=== PATIENT | male | born 1955 | race Caucasian/White ===

== ENCOUNTER 2021-07-12 08:29 | Outpatient (CLI) | payer MEDICARE, SELFPAY ==
--- NOTE | ~2021-07-12 | MR_ITS ---
EXAMINATION: MR cervical spine wo con DATE: 07/12/2021 09:45 INDICATION: Neck pain. TECHNIQUE: Magnetic resonance imaging (MRI) of the cervical spine was performed without intravenous c ontrast. Sequences included sagittal T2-weighted FSE, sagittal STIR FSE, sagittal T1-weighted FSE, ax ial MERGE, and axial T2-weighted FSE. COMPARISON: None FINDINGS: Bone alignment is normal. Vertebral body heights are normal. Intervertebral disc heights ar e normal. Osseous central spinal canal is developmentally small from C1 to C6. The spinal cord signal intensity is normal. The following disc levels are specifically discussed: C2-C3: The disc does not extend beyond the endplate margin. There is mild bilateral uncovertebral yvonne nt osteoarthritis. There is mild right and moderate left facet joint osteoarthritis. There is mild bi lateral neural foraminal stenosis. There is mild central canal stenosis. C3-C4: The disc does not extend beyond the endplate margin. There is mild right and moderate left unc overtebral joint osteoarthritis. There is mild right facet joint osteoarthritis. There is mild bilate ral neural foraminal stenosis. There is mild central canal stenosis. C4-C5: The disc is bulging. There is moderate bilateral uncovertebral joint osteoarthritis. There is moderate bilateral facet joint osteoarthritis. There is moderate bilateral neural foraminal stenosis. There is mild central canal stenosis with ventral indentation of the spinal cord. C5-C6: The disc is bulging. There is severe bilateral uncovertebral joint osteoarthritis. There is se mackenzie bilateral facet joint osteoarthritis. There is moderate bilateral neural foraminal stenosis. The re is moderate central canal stenosis with ventral and dorsal indentation of the spinal cord. C6-C7: The disc is mildly bulging. There is mild bilateral uncovertebral joint osteoarthritis. There is mild bilateral facet joint osteoarthritis. There is mild right neural foraminal stenosis. There is mild central canal stenosis. C7-T1: The disc does not extend beyond the endplate margin. There is no uncovertebral joint osteoarth ritis. There is mild bilateral facet joint osteoarthritis. There is no neural foraminal stenosis. The re is no central canal stenosis. IMPRESSION: 1. Moderate cervical spondylosis. Reviewed, dictated and finalized at location A. MENTATION COORDINATOR
== END 2021-07-12 08:30 | disposition home or self-care (01) ==
PROVIDERS: PCP Internal Medicine; Visit Provider Physician Assistant Medical
DX: M47.813 Spondylosis without myelopathy or radiculopathy, cervicothoracic region (principal); M48.03 Spinal stenosis, cervicothoracic region
CPT/HCPCS: 72141

== ENCOUNTER 2021-11-13 00:20 | Day surgery (SDC) | payer MEDICARE, SELFPAY ==
[2021-06-29 14:03] VITALS: BMI 38.9
[2021-09-21 09:01] VITALS: BMI 38.9
[2021-10-26 15:05] VITALS: BMI 39.5
--- NOTE | 2021-11-13 06:47 | P.PNAN_ITS ---
Anes - Initial Pre Proc Eval Procedure: Operation Date: 11/13/21 08:00 Proposed Procedures p Screening Colonoscopy - Ag Sharp MD Date/Time: 11/13/21 06:47 Surgeon: Ag Sharp MD Pre Op Diagnosis: hx of colon ca, hx of colon polyps Patient Data Age: 66 Gender: M Height: 1.78 m Weight: 125 kg Allergies Allergy/AdvReac Type Severity Reaction Status Date / Time No Known Allergies Allergy Verified 11/13/21 06:47 Home Medications Medication Instructions Recorded Confirmed Type atorvastatin 20 mg PO DAILY 06/29/21 10/26/21 History cholecalciferol (vitamin D3) 25 mcg PO BID 06/29/21 10/26/21 History lisinopril-hydrochlorothiazide 1 tablet PO DAILY 06/29/21 10/26/21 History mecobalamin (vitamin B12) 1,000 mcg PO DAILY 06/29/21 10/26/21 History metformin 500 mg PO BID 06/29/21 10/26/21 History psyllium husk [Metamucil] 0.52 g PO BID 06/29/21 10/26/21 History vit C-vit Z-trmjet-vni-om-3 1 cap PO DAILY 06/29/21 10/26/21 History [Ocuvite] Patient hx anesthesia problems: none Family hx anesthesia problems: none Results Review: All pre-operative results and documents have been reviewed as part of the pre-operative evaluation. [facility] Past Medical History Medical History (Updated 11/12/21 @ 13:32 by Chris Souza DO) Colon cancer Diabetes type 2, controlled Hyperlipidemia Hypertension MARIO ALBERTO (obstructive sleep apnea) CPAP Family History Family History (Updated 03/24/14 @ 07:13 by DOCTOR UNKNOWN) Sibling Family history of congestive heart failure Other Diabetes mellitus Social History Social History Smoking status: Never smoker Alcohol intake: current Alcohol use details: Monthly Living arrangements: with family Spiritual care concerns: No Anes - Eval Final PreProcedure Day of Procedure 11/13/21 06:47 Patient weight: obese Heart: regular rate and rhythm Lungs: clear to auscultation and normal air movement Airway: Mallampati scale class III Neurological: alert and oriented Last oral intake: >/= 8 hours ASA classification: III Emergent: no Anesthetic plan: proceed Anesthesia type and monitoring: general GIVS and standard monitoring Results Review: All pre-operative results and documents have been reviewed as part of the pre-operative evaluation. Informed Consent: The patient's anesthetic plan and its attendant risks and benefits were discussed with the patient/family/POA. Questions were solicited and answers provided to the satisfaction of the patient/family/POA.
[2021-11-13 06:48] VITALS: BP 149/81; PULSE 85; RESP 20; TEMP 36.9; O2SAT 96
[2021-11-13] MEDS: LACTATED RINGERS 1,000 ML 150 ML IV CONT (06:56)
[2021-11-13 07:04] LABS: Glucose Point of Care 247 mg/dl (65-105)
--- NOTE | 2021-11-13 07:56 | WPDGICN ---
Assessment and Plan Assessment and plan (1) History of colon cancer: Code(s): Z85.038 - Personal history of other malignant neoplasm of large intestine Status: Acute Assessment and Plan: patient has a history of colon cancer resected in 2010. More recent colonoscopy 2018 revealed colon polyps. Plan is for surveillance colonoscopy now and consider this at 3-5 year intervals in the future. GI Consult Note Consult date/time: 11/13/21 07:56 HPI: Keith Patel is a 66 year old male Presents for screening colonoscopy. Patient's current weight appetite and bowel movements are normal. He denies abdominal pain. He has had no bleeding. Most recent colonoscopy in 2018 revealed colon polyps. In 2010 patient had colon cancer resection. Patient states he recently had cervical spine nerve compression which is improved with conservative management. Family history is noncontributory. Review of Systems Review of Systems: All systems reviewed & are unremarkable except as noted in HPI and below PMFSH Past Medical History Medical History (Updated 11/13/21 @ 07:58 by Ag Sharp MD) Colon cancer Diabetes type 2, controlled Hyperlipidemia Hypertension MARIO ALBERTO (obstructive sleep apnea) CPAP Family History Family History (Updated 03/24/14 @ 07:13 by DOCTOR UNKNOWN) Sibling Family history of congestive heart failure Other Diabetes mellitus Social History Social History Smoking status: Never smoker Alcohol intake: current Alcohol use details: Monthly Living arrangements: with family Spiritual care concerns: No Meds Home Medications and Allergies Home Medications Medication Instructions Recorded Confirmed Type atorvastatin 20 mg PO DAILY 06/29/21 10/26/21 History cholecalciferol (vitamin D3) 25 mcg PO BID 06/29/21 10/26/21 History lisinopril-hydrochlorothiazide 1 tablet PO DAILY 06/29/21 10/26/21 History mecobalamin (vitamin B12) 1,000 mcg PO DAILY 06/29/21 10/26/21 History metformin 500 mg PO BID 06/29/21 10/26/21 History psyllium husk [Metamucil] 0.52 g PO BID 06/29/21 10/26/21 History vit C-vit A-cqgvar-qhs-om-3 1 cap PO DAILY 06/29/21 10/26/21 History [Ocuvite] Allergies Allergy/AdvReac Type Severity Reaction Status Date / Time No Known Allergies Allergy Verified 11/13/21 06:47 Vital Signs Vital Signs - 24 hr 04/19/22 06:48 Temperature 98.4 F Pulse Rate 85 Respiratory Rate 20 Blood Pressure 149/81 H Pulse Oximetry 96 Exam Narrative: Physical exam reveals patient to be alert. Vital signs stable. HEENT exam is unremarkable. Patient is anicteric. Lungs are clear to auscultation and percussion. Heart is without murmur or extra sounds. Abdominal exam bowel sounds are present soft nontender with no hepatosplenomegaly. Digital external rectal exam is normal
[2021-11-13 08:24] VITALS: BP 175/92; PULSE 88; RESP 25; O2SAT 95
[2021-11-13 08:34] VITALS: BP 165/108; PULSE 79; RESP 22; O2SAT 95
[2021-11-13 08:44] VITALS: BP 136/82; PULSE 78; RESP 24; O2SAT 95
== END 2021-11-13 08:54 | disposition home or self-care (01) ==
PROVIDERS: PCP Internal Medicine; Visit Provider Internal Medicine Gastroenterology
PROC: 0DJD8ZZ Inspection of Lower Intestinal Tract, Via Natural or Artificial Opening Endoscopic (ICD-10-PCS; CPT 45378; principal; 2021-11-13 08:00)
DX: Z12.11 Encounter for screening for malignant neoplasm of colon (principal); D12.2 Benign neoplasm of ascending colon; D12.3 Benign neoplasm of transverse colon; K63.5 Polyp of colon; K57.30 Diverticulosis of large intestine without perforation or abscess without bleeding; K64.8 Other hemorrhoids; Z98.0 Intestinal bypass and anastomosis status; Z90.49 Acquired absence of other specified parts of digestive tract; Z85.038 Personal history of other malignant neoplasm of large intestine; I10 Essential (primary) hypertension; E78.5 Hyperlipidemia, unspecified; E11.9 Type 2 diabetes mellitus without complications; G47.33 Obstructive sleep apnea (adult) (pediatric); Z79.84 Long term (current) use of oral hypoglycemic drugs; E66.9 Obesity, unspecified; Z68.41 Body mass index [BMI] 40.0-44.9, adult
CPT/HCPCS: 45385; 82948; 88305; J2704; J7120

== ENCOUNTER 2024-09-20 14:57 | Outpatient (CLI) | payer MEDICARE, SELFPAY ==
--- NOTE | ~2024-09-20 | US_ITS ---
EXAMINATION: US carotid duplex BI DATE: 09/20/2024 16:14 DEEP FAT FRY COOK INDICATION: Vertigo TECHNIQUE: Grayscale, color Doppler, and pulsed Doppler images of the cervical carotid arteries were obtained. The degree of vessel stenosis is placed in one of the following categories: normal, <50%, 50-69%, >=7 0% but less than near-occlusion, near-occlusion, or total occlusion. Note that percent stenosis relative to normal distal artery lumen diameter is indirectly measured fro m velocity measurements as described originally by Fredrick, et al. Radiology 2003; 229:340-346 and upda renny by Prasanna Hall et al STROKE 2012;43(3);915-921. COMPARISON: None. FINDINGS: There is mild atherosclerosis of both carotid arteries. Peak systolic velocity (in cm/s) is detailed below RIGHT: Right common carotid artery (CCA): 90 cm/s. Right internal carotid artery (ICA) PSV: 57 cm/s. Right ICA end-diastolic velocity (EDV): 21 cm/s. Right ICA/CCA PSV ratio is 0.6. Right external carotid artery (ECA): 109cm/s. There is antegrade flow in the right vertebral artery with a LEFT: Left common carotid artery (CCA): 64 cm/s. Left internal carotid artery (ICA) PSV: 107 cm/s. Left ICA end-diastolic velocity (EDV): 43 cm/s. Left ICA/CCA PSV ratio is 1.6. Left external carotid artery (ECA): 73cm/s. There is antegrade flow in the left vertebral artery. IMPRESSION: 1. Less than 50% stenosis in the right internal carotid artery. 2. Less than 50% stenosis in the left internal carotid artery. Reviewed, dictated and finalized at location A. FAT FRY COOK
--- OUTSIDE RECORDS SUMMARY | 2024-09-20 17:26 | XMS_ITS | Clinical Summary ---
Author Organization [facility] Address [address] [place] [address] Care Team Providers Care Residential Subcontractor Name Role Phone Adalberto Small MD Primary Care Provider [phone] Allergies No known active allergies Medications atorvastatin (LIPITOR) 20 mg tablet daily 09/30/2019 Active lisinopril-hydro CHLOROthiazide (ZESTORETIC) 20-12.5 mg per tablet daily 09/30/2019 Active cyanocobalamin (Vitamin B-12) 500 mcg tablet daily Activ e metFORMIN XR (GLUCOPHAGE XR) 500 mg 24 hr tablet 2 (two) times a day 09/30/2019 Active cholecalciferol (VITAMIN D-3) 2000 unit tablet daily Act josh lutein 6 mg tablet daily Active psyllium husk-calcium 1-60 gram-mg capsule Take by mouth daily Active cyclobenzaprine (FLEXERIL) 10 mg tablet 07/03/2021 Active HYDROcodone-acet aminophen (NORCO) 7.5-325 mg per tablet 07/11/2021 Activ e Active Problems No known active problems Surgical History Surgery Date Site/Laterality Comments JOINT REPLACEMENT HIP SURGERY SHOULDER SURGERY COLON SURGERY 07/28/2010 - 07/27/2011 Medical History Medical History Date Comments Diabetes mellitus (HCC) Hypercholesteremia Hypertension Colon cancer (CMS/HCC) (HCC) Sleep apnea Family History Medical History Relation Name Comments Diabetes Brother Cancer Father Family history of malignant neoplasm - (Added by TW Conv) Diabetes Father Arthritis Mother Family history of arthritis - (Added by TW Conv) Diabetes Other Family history of diabetes mellitus - (Added by Conv) Diabetes Sister Relation Name Status Comments Brother Father Mother Other Sister Social History Tobacco Use Types Packs/Day Years Used Date Smoking Tobacco: Never Smokeless Tobacco: Never Alcohol Use Standard Drinks/Week Comments Yes 0 (1 standard drink = 0.6 oz pur e alcohol) Personal Safety Answer Date Recorded Getting School Help Needed Not on file 09/20 Sex and Gender Information Value Date Recorded Sex Assigned at Not on file Legal Sex Male 7:53 AM CROSS TIE CUTTER Gender Identity Not on file Sexual Orientation Not on file 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 Not on file Not on file Obstetrics History Last Filed Vital Signs Vital Sign Reading Time Taken Comments Blood Pressure 124/65 09/13/2016 9:09 AM CROSS TIE CUTTER Pulse 84 09/13/2016 9:09 AM CROSS TIE CUTTER Temperature - - Respiratory Rate - - Oxygen Saturation 92% 09/13/2016 9:09 AM CROSS TIE CUTTER Inhaled Oxygen Concentration - - Weight 127 kg (280 lb) 10/07/2019 8:21 AM CDT Height 177.8 cm (5' 10 ) 10/07/2019 8:21 AM CDT Body Mass Index 40.18 10/07/2019 8:21 AM CDT Plan of Treatment Not on file Medical Devices Implanted Type Area Business And Marketing Teacher Device Identifier Shelf Expiration Date Model / Serial / Lot Left Hip Replaced Left: Hip Right Shoulder Replaced Right: Shoulder Insurance MEDICARE COMMERCIAL GENERIC MEDICARE COMMERCIAL GENERIC Care Teams Residential Subcontractor Relationship Specialty Start Date End Date Adalberto Small MD [address] [place] [id number] PCP - General 09/12/16
--- OUTSIDE RECORDS SUMMARY | 2024-09-20 17:26 | XMS_ITS | Clinical Summary ---
Author Organization [facility] Address [address] [place] [address] Care Team Providers Care Carpenter Apprentice Name Role Phone Adalberto Small MD Primary Care Provider [phone] Allergies No known active allergies Medications lisinopril-hydr ochlorothiazide 20-12.5 MG tablet Take 1 tablet by mouth daily. Active Lutein-Zeaxanth in 15-0.7 MG CapIndications: unknown dose Indications: unknown dose Active Cyanocobalamin (B-12) 2000 MCG Tab Active metFORMIN 500 MG tablet Take 500 mg by mouth 2 (two) times daily with meals. Active cyclobenzaprine 10 MG tablet Take 10 mg by mouth 3 (three) times daily as needed for Muscle Spasms. Active predniSONE 10 mg tablet Take 10 mg by mouth daily. Active Social History Tobacco Use Types Packs/Day Years Used Date Smoking Tobacco: Never Smokeless Tobacco: Never Alcohol Use Standard Drinks/Week Comments No 0 (1 standard drink = 0.6 oz pur e alcohol) AUDIT-C Answer Date Recorded Frequency of Alcohol Consumption Never 06/02/2019 Average Number of Drinks Not on file 019 Frequency of Binge Drinking Not on file 12/2018 Sex and Gender Information Value Date Recorded Sex Assigned at Not on file Legal Sex Male 6:15 PM CDT Gender Identity Not on file Sexual Orientation Not on file Last Filed Vital Signs Vital Sign Reading Time Taken Comments Blood Pressure 137/76 07/08/2021 10:43 AM SLICING MACHINE TENDER Pulse 75 07/08/2021 10:43 AM SLICING MACHINE TENDER Temperature 36.4 C (97.6 F) 07/08/2021 7:04 AM SLICING MACHINE TENDER Respiratory Rate 20 07/08/2021 10:43 AM SLICING MACHINE TENDER Oxygen Saturation 95% 07/08/2021 10:04 AM SLICING MACHINE TENDER Inhaled Oxygen Concentration - - Weight 124.3 kg (274 lb) 07/08/2021 7:04 AM SLICING MACHINE TENDER Height 177.8 cm (5' 10 ) 07/08/2021 7:04 AM SLICING MACHINE TENDER Body Mass Index 39.31 07/08/2021 7:04 AM SLICING MACHINE TENDER Plan of Treatment Health Maintenance Due Date Last Done Comments Colorectal Cancer Screening Colonoscopy (10 Years) 1955 Hepatitis C 1973 Annual Medicare Wellness Visit 01/28/2020 Pneumococcal Vaccine: 65+ Years (2 of 2 - PPSV23 or PCV20) 04/26/2021 04/26/2020 COVID-19 Vaccine (4 - 2023-2 5 season) 2024 04/29/2021, 10/05/2020, 09/13/2020 Influenza Adult (#1) 2024 05/15/2019, 05/22/2018, 05/02/2017 DTaP, Tdap and Td Vaccines ( 2 - Td or Tdap) 12/31/2029 01/01/2020 RSV Immunization or 60+ Years (1 - 1-dose 75+ series) 2030 Zoster Vaccines Completed 01/01/2020, 07/19/2019 Meningococcal B Vaccine Aged Out No l onger eligible based on patient's age to complete this topic Meningococcal Vaccine Aged Out No [place] eligible based on patient's age to complete this topic RSV Immunizations Under 20 Months Aged Out No longer eligible b ased on patient's age to complete this topic Insurance MEDICARE REECE Care Teams Carpenter Apprentice Relationship Specialty Start Date End Date Adalberto Small MD [address] [place] [id number] PCP - General INTERNAL MEDICINE 06/02/19
--- OUTSIDE RECORDS SUMMARY | 2024-09-20 17:26 | XMS_ITS | Clinical Summary ---
Author Organization [facility] Address [id number] [place] [address] [place] [address] Care Team Providers Care President And Chief Executive Officer Name Role Phone Unavailable Primary Care Provider Unavailabl e Allergies No known active allergies Medications atorvastatin (LIPITOR) 20 mg tablet daily. 09/30/2019 Active cholecalciferol, Vitamin D3, 50 mcg (2,000 unit) Tablet daily. Active cyanocobalamin (VITAMIN B-12) 500 mcg tablet daily. Activ e lisinopril-hydro CHLOROthiazide (ZESTORETIC) 20-12.5 mg tablet daily. 09/30/2019 Active metFORMIN (GLUCOPHAGE XR) 500 mg Extended Release 24 hour tablet 2 times daily. 09/30/2019 Active Psyllium Husk-calcium 1-60 gram-mg Capsule Take by mouth daily. Active Active Problems No known active problems Social History Tobacco Use Types Packs/Day Years Used Date Smoking Tobacco: Never Assessed Sex and Gender Information Value Date Recorded Sex Assigned at Not on file Legal Sex Male 3:18 PM CDT Gender Identity Not on file Sexual Orientation Not on file Last Filed Vital Signs Vital Sign Reading Time Taken Comments Blood Pressure 129/71 03/07/2021 3:29 PM CDT Pulse 86 03/07/2021 3:29 PM CDT Temperature 36.6 C (97.8 F) 03/07/2021 3:29 PM CDT Respiratory Rate 16 03/07/2021 3:29 PM CDT Oxygen Saturation 99% 03/07/2021 3:29 PM CDT Inhaled Oxygen Concentration - - Weight - - Height - - Body Mass Index - - Plan of Treatment Health Maintenance Due Date Last Done Comments DTAP/TDAP/TD VACCINES (1 - Tdap) 1974 COLORECTAL SCREENING 01/28/2000 Colorectal Cancer Screening 01/28/2000 FIT-DNA Q 3 years 01/28/2000 FIT/FOBT Q 1 year 01/28/2000 Flex Sig/CT Colonography Q 5 years 01/28/2000 PNEUMOCOCCAL VACCINE 65+ YEARS (1 of 1 - PCV) 01/28/20 05 ZOSTER VACCINE (1 of 2) 2005 INFLUENZA VACCINE (#1) 2024 RSV VACCINE (60+ or ) (1 - 1-dose 75+ series) 2030 Insurance MEDICARE
--- OUTSIDE RECORDS SUMMARY | 2024-09-20 17:26 | XMS_ITS | Referral Summary ---
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 Not on file Not on file Last Filed Vital Signs Vital Sign Reading Time Taken Comments Blood Pressure 124/65 09/13/2016 9:09 AM CERTIFIED MEDICATION AIDE Pulse 84 09/13/2016 9:09 AM CERTIFIED MEDICATION AIDE Temperature - - Respiratory Rate - - Oxygen Saturation 92% 09/13/2016 9:09 AM CERTIFIED MEDICATION AIDE Inhaled Oxygen Concentration - - Weight 127 kg (280 lb) 10/07/2019 8:21 AM CDT Height 177.8 cm (5' 10 ) 10/07/2019 8:21 AM CDT Body Mass Index 40.18 10/07/2019 8:21 AM CDT Plan of Treatment Not on file Medical Devices Implanted Type Area Supervisor Riveting Device Identifier Shelf Expiration Date Model / Serial / Lot Left Hip Replaced Left: Hip Right Shoulder Replaced Right: Shoulder Insurance MEDICARE COMMERCIAL GENERIC MEDICARE COMMERCIAL GENERIC Care Teams Allergy And Immunology Specialist Relationship Specialty Start Date End Date Adalberto Small MD [address] [place] [id number] PCP - General 09/12/16
== END 2024-09-20 14:58 | disposition home or self-care (01) ==
PROVIDERS: PCP Physician Assistant Medical; Visit Provider Physician Assistant Medical
DX: I65.23 Occlusion and stenosis of bilateral carotid arteries (principal)
CPT/HCPCS: 93880

== ENCOUNTER 2025-01-19 00:14 | Day surgery (SDC) | payer MEDICARE, SELFPAY ==
[2025-01-03 14:47] VITALS: BMI 39.2
[2025-01-19 06:23] VITALS: BP 122/66; PULSE 69; RESP 19; TEMP 36.6; O2SAT 98
[2025-01-19] MEDS: LACTATED RINGERS 1,000 ML 150 ML IV CONT (06:38)
[2025-01-19 06:39] LABS: Glucose Point of Care 120 mg/dl (65-105)
--- NOTE | 2025-01-19 06:39 | SUR.PREOP ---
Patient wishes to suspend DNR for this elective colonoscopy. Code status form signed at bedside with patient. Patient will be full resuscitation for this procedure.
--- NOTE | 2025-01-19 07:21 | WPDANESEPPF ---
Anes - Initial Pre Proc Eval Procedure: Operation Date: 01/19/25 07:30 Proposed Procedures p Screening Colonoscopy - Marvin Gomez MD Date/Time: 01/19/25 07:21 Surgeon: Marvin Gomez MD Pre Op Diagnosis: Hx of neoplasm Patient Data Age: 69 Gender: M Height: 1.78 m Weight: 125.9 kg Last Vital Signs Temp 36.6 C 01/19/25 06:23 Pulse 69 01/19/25 06:23 Resp 19 01/19/25 06:23 BP 122/66 01/19/25 06:23 Pulse Ox 98 01/19/25 06:23 O2 Del Method Room Air 01/19/25 06:23 Allergies Allergy/AdvReac Type Severity Reaction Status Date / Time No Known Allergies Allergy Verified 01/19/25 06:21 Home Medications ?Medication ?Instructions ?Recorded ?Confirmed ?Type cholecalciferol (vitamin D3) 25 25 mcg PO BID 06/29/21 01/19/25 History mcg (1,000 unit) tablet psyllium husk 0.52 gram capsule 0.52 g PO BID 06/29/21 01/19/25 History (Metamucil) cyanocobalamin (vitamin B-12) 500 500 mcg PO DAILY 08/27/23 01/19/25 History mcg tablet blood sugar diagnostic (OneTouch #100 ea 05/06/24 01/03/25 Rx Verio test strips) lancets 30 gauge (OneTouch Delica #100 ea 05/06/24 01/03/25 Rx Plus Lancet) atorvastatin 20 mg tablet 20 mg PO DAILY #90 tabs 09/17/24 01/19/25 Rx metformin 500 mg tablet,extended See Rx Instructions .Route 12/07/24 01/19/25 Rx release 24 hr .COMPLEX #270 tabs lisinopril 20 1 tablet PO DAILY #90 tabs 12/21/24 01/19/25 Rx mg-hydrochlorothiazide 12.5 mg tablet semaglutide 0.25 mg or 0.5 mg (2 0.25 mg (0.368 mL) subcut WEEKLY 01/05/25 01/19/25 Rx mg/3 mL) subcutaneous pen injector #3 mL (Ozempic) Laboratory Tests 01/19/25 06:35 POC Capillary Glucose 120 H mg/dl (65-105) Patient hx anesthesia problems: none Family hx anesthesia problems: none Results Review: All pre-operative results and documents have been reviewed as part of the pre-operative evaluation. [facility] Past Medical History Medical History Umbilical hernia Colon cancer Diabetes type 2, controlled MARIO ALBERTO (obstructive sleep apnea) CPAP Hyperlipidemia Hypertension Surgical History Surgical History History of hip surgery History of arthroplasty of right shoulder Family History Family History Sibling Family history of congestive heart failure Other Diabetes mellitus Social History Social History Social History: 09/08/24 very confident with medical forms Smoking status: Never smoker Alcohol intake: current Alcohol use details: Monthly Substance use: never Substance use type: does not use Do You Feel Safe in your Home?: Yes Lack of Transportation: No Lack of Food: Never True Current Housing: I Have Housing Concerned About Future Housing: No Difficulty Paying Gas/Electric Bills: No Difficulty Paying for Meds: No Currently Unemployed: No Education: High School Diploma/GED Difficulty w/ Childcare or Family Care: No Living arrangements: with family Gender identity (if verbalized by the patient): Male Spiritual care concerns: No Anes - Eval Final PreProcedure Day of Procedure 01/19/25 07:21 Patient weight: morbidly obese Heart: regular rate and rhythm Lungs: clear to auscultation Airway: Mallampati scale class III Neurological: alert and oriented Last oral intake: >/= 8 hours ASA classification: III Emergent: no Anesthetic plan: proceed Anesthesia type and monitoring: general GIVS and standard monitoring Results Review: All pre-operative results and documents have been reviewed as part of the pre-operative evaluation. Informed Consent: The patient's anesthetic plan and its attendant risks and benefits were discussed with the patient/family/POA. Questions were solicited and answers provided to the satisfaction of the patient/family/POA.
--- NOTE | 2025-01-19 07:24 | PM.IMHP ---
H&P: HPI History of Present Illness Date/Time: 01/19/25 07:24 Chief Complaint: History of colorectal cancer Narrative: the patient had malignant polyp several years ago, having undergone partial colectomy. His last colonoscopy was 3 years ago. He is here for surv Review of Systems Review of Systems: All systems reviewed & are unremarkable except as noted in HPI and below PMFSH Past Medical History Medical History Umbilical hernia Colon cancer Diabetes type 2, controlled MARIO ALBERTO (obstructive sleep apnea) CPAP Hyperlipidemia Hypertension Surgical History Surgical History History of hip surgery History of arthroplasty of right shoulder Family History Family History Sibling Family history of congestive heart failure Other Diabetes mellitus Social History Social History Social History: 09/08/24 very confident with medical forms Smoking status: Never smoker Alcohol intake: current Alcohol use details: Monthly Substance use: never Substance use type: does not use Do You Feel Safe in your Home?: Yes Lack of Transportation: No Lack of Food: Never True Current Housing: I Have Housing Concerned About Future Housing: No Difficulty Paying Gas/Electric Bills: No Difficulty Paying for Meds: No Currently Unemployed: No Education: High School Diploma/GED Difficulty w/ Childcare or Family Care: No Living arrangements: with family Gender identity (if verbalized by the patient): Male Spiritual care concerns: No Meds Home Medications and Allergies Home Medications ?Medication ?Instructions ?Recorded ?Confirmed ?Type cholecalciferol (vitamin D3) 25 25 mcg PO BID 06/29/21 01/19/25 History mcg (1,000 unit) tablet psyllium husk 0.52 gram capsule 0.52 g PO BID 06/29/21 01/19/25 History (Metamucil) cyanocobalamin (vitamin B-12) 500 500 mcg PO DAILY 08/27/23 01/19/25 History mcg tablet blood sugar diagnostic (OneTouch #100 ea 05/06/24 01/03/25 Rx Verio test strips) lancets 30 gauge (OneTouch Delica #100 ea 05/06/24 01/03/25 Rx Plus Lancet) atorvastatin 20 mg tablet 20 mg PO DAILY #90 tabs 09/17/24 01/19/25 Rx metformin 500 mg tablet,extended See Rx Instructions .Route 12/07/24 01/19/25 Rx release 24 hr .COMPLEX #270 tabs lisinopril 20 1 tablet PO DAILY #90 tabs 12/21/24 01/19/25 Rx mg-hydrochlorothiazide 12.5 mg tablet semaglutide 0.25 mg or 0.5 mg (2 0.25 mg (0.368 mL) subcut WEEKLY 01/05/25 01/19/25 Rx mg/3 mL) subcutaneous pen injector #3 mL ([employer]) Allergies Allergy/AdvReac Type Severity Reaction Status Date / Time No Known Allergies Allergy Verified 01/19/25 06:21 Vital Signs Vital Signs - 24 hr 01/19/25 06:23 Temperature 97.8 F Pulse Rate 69 Respiratory Rate 19 Blood Pressure 122/66 Pulse Oximetry 98 Oxygen Delivery Room Air Exam Const: General: cooperative and healthy appearing Resp: Effort & Inspection: normal respiratory effort and able to speak in complete sentences Auscultation: clear to auscultation bilaterally Cardio: Rate: regular rate Rhythm: regular rhythm GI: Inspection: normal to inspection GI Palp: No No hepatosplenomegaly present Auscultation: normal bowel sounds Rectal Exam: deferred Skin: General skin exam: normal color Psych: Appearance: grossly normal Mental Status: mental status grossly normal Assessment and Plan Assessment and plan (1) History of colon cancer: Code(s): Z85.038 - Personal history of other malignant neoplasm of large intestine Status: Acute Assessment and Plan: The patient is deemed a good candidate for the procedure. Consent signed. Will proceed.
[2025-01-19] MEDS: SIMETHICONE ORAL SUSPENSION 20 MG/0.3 ML 30 ML BOTTLE 0.6 ML IRRIGATION (07:40)
--- NOTE | 2025-01-19 07:46 | S_PTH ---
PATIENT: Keith Patel LOC: [facility] U#:[id number] AGE/SX: 69/M ROOM: RE01/19/[address]: Marvin Gomez MD : 1955 BED: DIS: 01/19/2025 SPEC #: [id number] RECD: 01/19/25 10:40 STATUS: FAHAD REQ #: [id number] JOHANNE: 01/19/25 07:[address]: Marvin Gomez DEPT: [facility] Surgical RECD BY: Chela Beal ENTERED: 01/19/25 10:41 SP TYPE: Surgical OTHR DR: Alix Orr PA-C Tissues: A - Colon Polypectomy B - Colon Polypectomy C - Colon Polypectomy Procedures: Hematoxylin and Eosin Stain Gross and Microscopic Level 4
[2025-01-19 07:54] VITALS: BP 95/58; PULSE 74; RESP 20; O2SAT 97
[2025-01-19 08:04] VITALS: BP 103/65; PULSE 69; RESP 20; O2SAT 97
[2025-01-19 08:14] VITALS: BP 105/63; PULSE 65; RESP 20; O2SAT 97
== END 2025-01-19 08:24 | disposition home or self-care (01) ==
PROVIDERS: PCP Physician Assistant Medical; Referring Provider Physician Assistant Medical; Visit Provider Internal Medicine Gastroenterology
PROC: 0DJD8ZZ Inspection of Lower Intestinal Tract, Via Natural or Artificial Opening Endoscopic (ICD-10-PCS; CPT 45378; principal; 2025-01-19 07:30)
DX: Z08 Encounter for follow-up examination after completed treatment for malignant neoplasm (principal); D12.2 Benign neoplasm of ascending colon; D12.4 Benign neoplasm of descending colon; D12.5 Benign neoplasm of sigmoid colon; K64.8 Other hemorrhoids; K57.30 Diverticulosis of large intestine without perforation or abscess without bleeding; E78.5 Hyperlipidemia, unspecified; I10 Essential (primary) hypertension; E11.9 Type 2 diabetes mellitus without complications; G47.33 Obstructive sleep apnea (adult) (pediatric); E66.01 Morbid (severe) obesity due to excess calories; Z68.39 Body mass index [BMI] 39.0-39.9, adult; Z79.84 Long term (current) use of oral hypoglycemic drugs; Z79.85 Long-term (current) use of injectable non-insulin antidiabetic drugs; Z98.890 Other specified postprocedural states; Z90.49 Acquired absence of other specified parts of digestive tract; Z99.89 Dependence on other enabling machines and devices; Z85.038 Personal history of other malignant neoplasm of large intestine; Z80.0 Family history of malignant neoplasm of digestive organs; Z82.49 Family history of ischemic heart disease and other diseases of the circulatory system
CPT/HCPCS: 45385; 82948; 88305; J2003; J2704; J7120